=== PATIENT | male | born 2000 | race African-American/Black ===

== ENCOUNTER 2023-11-13 11:02 | Emergency (ER) | payer SELFPAY ==
[2023-11-13 14:10] LABS: APPEARANCE,URINE CLEAR (Clear); BILIRUBIN,URINE NEGATIVE (Negative); COLOR,URINE YELLOW (Yellow); GLUCOSE,URINE NEGATIVE (Negative); KETONES,URINE NEGATIVE (Negative); LEUKOCYTE ESTERASE,URINE NEGATIVE (Negative); NITRITE,URINE NEGATIVE (Negative); OCCULT BLOOD,URINE NEGATIVE (Negative); PROTEIN,URINE NEGATIVE (Negative); UROBILINOGEN,URINE 0.2 (0.2-1.0)
[2023-11-13] MEDS: cefTRIAXone 1 GM, Lidocaine 1% 2.1 ML IM ONE (14:42)
[2023-11-13] MEDS: Ibuprofen 600 MG Tab PO ONE (14:42)
[2023-11-13] MEDS: Azithromycin 250 MG Tab PO ONE (14:42)
[2023-11-13 17:18] LABS: C. TRACHOMATIS BY PCR NOT DETECTED; N. GONORRHOEAE BY PCR NOT DETECTED
== END 2023-11-13 16:25 | disposition home or self-care (01) ==
LOC: JD.ED 11:02
DX: M25.561 Pain in right knee (principal); R36.9 Urethral discharge, unspecified
CPT/HCPCS: 73562-26-RT; 73562-RT; 81003; 87491; 87591; 96372; 99283; A9270-GY; J0696; J3490

== ENCOUNTER 2023-11-17 12:43 | Emergency (ER) | payer SELFPAY ==
[2023-11-17 13:46] LABS: BARBITURATE SCREEN,URINE NEGATIVE (CUTOFF=200); BENZODIAZEPINES SCREEN,URINE NEGATIVE (CUTOFF=150); BUPRENORPHINE SCREEN,URINE NEGATIVE (CUTOFF=10); METHADONE SCREEN, URINE NEGATIVE (CUT0FF=200); METHAMPHETAMINES SCREEN, URINE NEGATIVE (CUTOFF=500); OXYCODONE SCREEN,URINE NEGATIVE (CUT0FF=100); THC SCREEN,URINE 20 NG/ML PRESUMPTIVE POSITIVE (CUTOFF=50)
[2023-11-17 13:51] LABS: AMPHETAMINES SCREEN, URINE NEGATIVE (CUTOFF=500)
[2023-11-17 14:17] LABS: BASOPHILS PERCENT AUTO 0.4 % (0.0-1.0); EOSINOPHILS PERCENT AUTO 1.1 % (0.0-6.0); HEMATOCRIT 46.8 % (42.0-52.0); HEMOGLOBIN 15.9 gm/dl (14.0-18.0); LYMPHOCYTES ABSOLUTE AUTO 0.6 K/mm3 (1.0-4.8); LYMPHOCYTES PERCENT AUTO 22.2 % (24.0-44.0); MEAN CORPUSCULAR HEMOGLOBIN 30.2 pg (28.0-32.0); MEAN CORPUSCULAR VOLUME 88.8 fl (83.0-99.0); MONOCYTES ABSOLUTE AUTO 0.3 K/mm3 (0.0-0.8); MONOCYTES PERCENT AUTO 10.2 % (0.0-8.0); NEUTROPHILS ABSOLUTE AUTO 1.9 K/mm3 (1.8-7.7); NEUTROPHILS PERCENT AUTO 66.1 % (41.0-71.0); PLATELET COUNT,PLT 151 K/mm3 (150-400); RED BLOOD CELL COUNT 5.27 M/mm3 (4.52-5.90); WHITE BLOOD CELL COUNT,WBC 2.84 K/mm3 (3.9-11.3)
[2023-11-17 14:50] LABS: A/G RATIO 1.3 (1-2); ALBUMIN 4.4 g/dl (3.4-5.0); ANION GAP 11.7 (5-15); BILIRUBIN TOTAL 1.7 mg/dL (0.2-1.0); CALCIUM 9.6 mg/dL (8.5-10.1); EST CRCL DRUG DOSING (CG) 122.36 mL/min; POTASSIUM,K 3.7 mEq/L (3.5-5.1); PROTEIN TOTAL,TP 7.9 g/dl (6.4-8.2); TSH 0.499 uIU/mL (0.358-3.74)
== END 2023-11-17 14:45 | disposition home or self-care (01) ==
LOC: JD.ED 12:43
DX: R45.851 Suicidal ideations (principal); F17.210 Nicotine dependence, cigarettes, uncomplicated; Z86.16 Personal history of COVID-19; Z79.899 Other long term (current) drug therapy
CPT/HCPCS: 36415; 80053; 80143; 80179; 80306; 80307; 84443; 85025; 99285

== ENCOUNTER 2025-03-06 13:50 | Emergency (ER) | payer SELFPAY ==
[2025-03-06] MEDS: Ketorolac 30 MG/ML SDV IM ONE (15:45)
== END 2025-03-06 15:52 | disposition home or self-care (01) ==
LOC: JD.ED 13:50
DX: K02.9 Dental caries, unspecified (principal); Z79.899 Other long term (current) drug therapy; Z86.16 Personal history of COVID-19; Z87.891 Personal history of nicotine dependence
CPT/HCPCS: 96372; 99283; A9270; J1885; 99284

== ENCOUNTER 2025-03-29 13:21 | Emergency (ER) | payer SELFPAY ==
[2025-03-29] MEDS: Ketorolac 30 MG/ML SDV IM ONE (15:47)
== END 2025-03-29 15:50 | disposition home or self-care (01) ==
LOC: JD.ED 13:21
DX: K02.9 Dental caries, unspecified (principal); F17.200 Nicotine dependence, unspecified, uncomplicated
CPT/HCPCS: 96372; 99282; J1885; 99283